=== PATIENT | male | born 1955 | race Two or more races ===

== ENCOUNTER 2021-08-29 06:38 | Day surgery (SDC) | payer OTHER | END 2021-08-29 17:45 | disposition home or self-care (01) | LOC: AMB-ENDOS 06:38 | PROVIDERS: ATTEND Surgery | DX: K57.32 Diverticulitis of large intestine without perforation or abscess without bleeding (principal) ==

== ENCOUNTER 2021-08-29 08:58 | Outpatient (CLI) | payer OTHER | END 2021-08-29 12:00 | disposition home or self-care (01) | LOC: LAB 08:58 | PROVIDERS: ATTEND Surgery | DX: Z03.818 Encounter for observation for suspected exposure to other biological agents ruled out (principal) ==

== ENCOUNTER 2021-10-24 03:38 | Inpatient (IN) | payer OTHER ==
[~2021-10-24] VITALS: Ht 170.2 cm; Wt 59.0 kg
--- NOTE | 2021-10-24 03:53 | NUR ---
SE RECIBE PTE ALERTA Y ORIENTADO POR [place], EN AMBULANCIA. PTE TRANSFERIDO DESDE [facility] POR OBSTRUCCION ABDOMINAL. PTE DE DR. ROYA HARKINS, INDICA PRESENTAR VINICIUS DOLOR ABDOMINAL DESDE HACE 5 GREGORY. SE OBSERVA A JANUSZ ABDOMINAL DISTENDIDA Y PRESENTA B/P 200/120 TOMADA ANUALMENTE.
[2021-10-24] MEDS ORDERED: HYDRALAZINE HCL50 MG (04:26)
[2021-10-24] MEDS ORDERED: CARVEDILOL25 MG (04:26)
[2021-10-24] MEDS ORDERED: HYDRALAZINE HC100 MG (04:26)
[2021-10-24] MEDS ORDERED: ISOSORBIDE MONO60 MG (04:26)
[2021-10-24] MEDS ORDERED: SENOKOT8.6 M1 (04:27)
[2021-10-24] MEDS ORDERED: GLIMEPIRIDE1 MG (04:27)
[2021-10-24] MEDS ORDERED: PEPCID AC20 MG (04:27)
[2021-10-24] MEDS ORDERED: AVAPRO300 MG (04:27)
[2021-10-24] MEDS ORDERED: SYNTHROID100 MCG (04:28)
[2021-10-24] MEDS ORDERED: LIPITOR40 M1 (04:28)
--- NOTE | 2021-10-24 05:36 | NUR ---
PTE MASCULINO ALERTA Y ORIENTADO X3 ES EVALUADO POR . SE ORIENTA PTE SOBRE ORDENES DE TX REFIERE COMPRENDER. SE EXTRAEN MUESTRAS DE LABORATORIOS Y SE CANALIZA VENA BAJO MEDIDAS ASEPTICAS. SE ADMINISTRAN MEDICAMENTOS, BAJO MEDIDAS ASEPTICAS. SE INSERTA TUBO NASOGASTRICO EN FOSA NASAL R+, POR VIRGINIE REED, BAJO MEDIDAS ASEPTICAS. PTE MANEJADO POR VIRGINIE REED.
--- NOTE | 2021-10-24 07:12 | NUR ---
SE RECIBE PTE ALERTA Y ORIENTADO EN YOLY BAJA CON BARANDAS ELEVADAS POR SEGURIDAD, SE OBSERVA PTE CON NASOGASTRICO EN FOSA RT Y SUCCION INTERMITENTE. CANALIZADO EN PERIFERAL CON KCL 40MEQ EN 100ML BAJANDO A 3ML/HR. PEND CONSULTA CON DR. Marcus HARKINS. SE MANTIENE BAJO OBSERVACION POR CAMBIOS SIGNIFICATIVOS
[2021-10-25] MEDS ORDERED: CATAPRES0.3 MG (14:15)
[2021-10-25] MEDS ORDERED: NIFEDIPINE ER30 MG (14:18)
[2021-10-25] MEDS ORDERED: TAMSULOSIN HCL0.4 MG (14:18)
[2021-10-25] MEDS ORDERED: OXYBUTYNIN CHLO10 MG (14:19)
[2021-11-07] MEDS ORDERED: HYOSCYAMINE0.125 M1 SL (13:20)
== END 2021-11-07 16:20 | disposition home or self-care (01) | DRG 330 ==
LOC: ER 03:38 → SURG 15:01 → ICU 10-27 20:31 → SURG 11-04 14:19
PROVIDERS: ADMIT Surgery; ATTEND Surgery
PROC: 4A12X4Z Monitoring of Cardiac Electrical Activity, External Approach (ICD-10-PCS; 2021-10-24)
PROC: 02HV33Z Insertion of Infusion Device into Superior Vena Cava, Percutaneous Approach (ICD-10-PCS; 2021-10-25)
PROC: B24BZZZ Ultrasonography of Heart with Aorta (ICD-10-PCS; 2021-10-25)
PROC: BW21YZZ Computerized Tomography (CT Scan) of Abdomen and Pelvis using Other Contrast (ICD-10-PCS; 2021-10-25)
PROC: 0D1L4Z4 Bypass Transverse Colon to Cutaneous, Percutaneous Endoscopic Approach (ICD-10-PCS; principal; 2021-10-27 15:00)
PROC: BW21YZZ Computerized Tomography (CT Scan) of Abdomen and Pelvis using Other Contrast (ICD-10-PCS; 2021-11-01)
DX: K56.699 Other intestinal obstruction unspecified as to partial versus complete obstruction (principal); K43.0 Incisional hernia with obstruction, without gangrene; R14.0 Abdominal distension (gaseous); I10 Essential (primary) hypertension; E86.0 Dehydration; E87.6 Hypokalemia; K59.09 Other constipation; R31.0 Gross hematuria; E11.69 Type 2 diabetes mellitus with other specified complication; Z79.4 Long term (current) use of insulin; E03.8 Other specified hypothyroidism; N40.0 Benign prostatic hyperplasia without lower urinary tract symptoms; Z20.822 Contact with and (suspected) exposure to COVID-19; Z86.73 Personal history of transient ischemic attack (TIA), and cerebral infarction without residual deficits; I20.9 Angina pectoris, unspecified

== ENCOUNTER 2022-09-05 10:00 | Inpatient (IN) | payer OTHER ==
[~2022-09-05] VITALS: Ht 152.4 cm; Wt 65.8 kg
[~2022-09-05 10:00] MED LIST: AVAPRO300 MG; CARVEDILOL25 MG; CATAPRES0.3 MG; GLIMEPIRIDE1 MG; HYDRALAZINE HC100 MG; HYDRALAZINE HCL50 MG; HYOSCYAMINE0.125 M1 SL; ISOSORBIDE MONO60 MG; LIPITOR40 M1; NIFEDIPINE ER30 MG; OXYBUTYNIN CHLO10 MG; PEPCID AC20 MG; SENOKOT8.6 M1; SYNTHROID100 MCG; TAMSULOSIN HCL0.4 MG
[2022-10-01] MEDS ORDERED: INTESTINEX680 M1 PO (12:39)
[2022-10-01] MEDS ORDERED: LINEZOLID600 MG PO (12:39)
== END 2022-10-01 15:04 | disposition home or self-care (01) | DRG 329 ==
LOC: SURH 09-07 07:00 → O/R 09-07 09:58 → MEDJ 09-07 09:58 → OB/GYN 09-07 10:00 → SURH 09-07 10:00 → ICU 09-10 14:35 → MEDJ 09-19 21:27 → SURH 09-28 19:25
PROVIDERS: Surgery; ADMIT Surgery; ATTEND Surgery
PROC: 0WUF0JZ Supplement Abdominal Wall with Synthetic Substitute, Open Approach (ICD-10-PCS; 2022-09-07)
PROC: 0DQ80ZZ Repair Small Intestine, Open Approach (ICD-10-PCS; 2022-09-07)
PROC: 0DJD8ZZ Inspection of Lower Intestinal Tract, Via Natural or Artificial Opening Endoscopic (ICD-10-PCS; 2022-09-07)
PROC: 0DTN0ZZ Resection of Sigmoid Colon, Open Approach (ICD-10-PCS; principal; 2022-09-07 07:00)
PROC: 0DBP0ZZ Excision of Rectum, Open Approach (ICD-10-PCS; 2022-09-07 07:00)
PROC: 02HV33Z Insertion of Infusion Device into Superior Vena Cava, Percutaneous Approach (ICD-10-PCS; 2022-09-09)
PROC: 5A0935A Assistance with Respiratory Ventilation, Less than 24 Consecutive Hours, High Flow/Velocity Cannula (ICD-10-PCS; 2022-09-09)
PROC: BW2410Z Computerized Tomography (CT Scan) of Chest and Abdomen using Low Osmolar Contrast, Unenhanced and Enhanced (ICD-10-PCS; 2022-09-10)
PROC: 4A12X4Z Monitoring of Cardiac Electrical Activity, External Approach (ICD-10-PCS; 2022-09-20)
PROC: BW24ZZZ Computerized Tomography (CT Scan) of Chest and Abdomen (ICD-10-PCS; 2022-09-20)
PROC: BW2110Z Computerized Tomography (CT Scan) of Abdomen and Pelvis using Low Osmolar Contrast, Unenhanced and Enhanced (ICD-10-PCS; 2022-09-20)
PROC: BW2410Z Computerized Tomography (CT Scan) of Chest and Abdomen using Low Osmolar Contrast, Unenhanced and Enhanced (ICD-10-PCS; 2022-09-27)
PROC: 0WPG00Z Removal of Drainage Device from Peritoneal Cavity, Open Approach (ICD-10-PCS; 2022-09-28)
PROC: 0JD80ZZ Extraction of Abdomen Subcutaneous Tissue and Fascia, Open Approach (ICD-10-PCS; 2022-09-28)
DX: K56.49 Other impaction of intestine (principal); J18.0 Bronchopneumonia, unspecified organism; K63.1 Perforation of intestine (nontraumatic); K43.0 Incisional hernia with obstruction, without gangrene; K91.89 Other postprocedural complications and disorders of digestive system; K94.09 Other complications of colostomy; K91.71 Accidental puncture and laceration of a digestive system organ or structure during a digestive system procedure; T81.31XA Disruption of external operation (surgical) wound, not elsewhere classified, initial encounter; J98.11 Atelectasis; K91.858 Other complications of intestinal pouch; K56.690 Other partial intestinal obstruction; Z53.31 Laparoscopic surgical procedure converted to open procedure; K62.4 Stenosis of anus and rectum; I10 Essential (primary) hypertension

== ENCOUNTER 2022-11-14 07:08 | Outpatient (CLI) | payer OTHER ==
[~2022-11-14 07:08] MED LIST changes: +INTESTINEX680 M1 PO; +LINEZOLID600 MG PO
== END 2022-11-14 07:10 | disposition home or self-care (01) ==
LOC: RX STUDY 07:08
PROVIDERS: ATTEND Surgery
DX: K56.49 Other impaction of intestine (principal); K56.690 Other partial intestinal obstruction; K63.1 Perforation of intestine (nontraumatic); K43.2 Incisional hernia without obstruction or gangrene; Z98.0 Intestinal bypass and anastomosis status

== ENCOUNTER 2022-11-29 06:34 | Emergency (ER) | payer OTHER ==
[~2022-11-29] VITALS: Ht 170.2 cm; Wt 59.0 kg
== END 2022-11-29 10:09 | disposition home or self-care (01) ==
LOC: ER 06:34
DX: R10.9 Unspecified abdominal pain (principal); Z86.73 Personal history of transient ischemic attack (TIA), and cerebral infarction without residual deficits; E11.9 Type 2 diabetes mellitus without complications; Z79.84 Long term (current) use of oral hypoglycemic drugs; E78.00 Pure hypercholesterolemia, unspecified; I10 Essential (primary) hypertension; Z93.3 Colostomy status; K57.30 Diverticulosis of large intestine without perforation or abscess without bleeding

== ENCOUNTER 2023-01-01 09:48 | Inpatient (IN) | payer OTHER ==
[~2023-01-01] VITALS: Ht 170.2 cm; Wt 56.7 kg
[2023-01-02] MEDS ORDERED: ADULT LOW DOSE81 M1 PO (11:56)
[2023-01-02] MEDS ORDERED: SYNTHROID88 MCG PO (11:56)
[2023-01-02] MEDS ORDERED: GLIMEPIRIDE1 MG (11:57)
[2023-01-10] MEDS ORDERED: GABAPENTIN400 MG (15:57)
[2023-01-10] MEDS ORDERED: RISEDRONATE SO150 MG (15:57)
[2023-01-11] MEDS ORDERED: HYOSCYAMINE0.125 M1 SL (12:51)
[2023-01-11] MEDS ORDERED: TRAM1TAB98 PO (12:52)
[2023-01-11] MEDS ORDERED: PEPCID20 MG PO (12:53)
[2023-01-11] MEDS ORDERED: LEVSIN/SL0.125 MG SL (12:54)
== END 2023-01-11 14:30 | disposition home or self-care (01) | DRG 329 ==
LOC: O/R 01-08 07:08 → SURH 01-08 07:08 → SURG 01-08 08:30 → SURH 01-08 10:08 → SURG 01-08 12:15 → SURH 01-11 14:30
PROVIDERS: ADMIT Surgery; ATTEND Surgery
PROC: 0DBE4ZZ Excision of Large Intestine, Percutaneous Endoscopic Approach (ICD-10-PCS; principal; 2023-01-08 08:30)
DX: Z43.3 Encounter for attention to colostomy (principal); K63.1 Perforation of intestine (nontraumatic); K56.51 Intestinal adhesions [bands], with partial obstruction; K43.2 Incisional hernia without obstruction or gangrene; I10 Essential (primary) hypertension